=== PATIENT | female | born 1975 | race African-American/Black ===

== ENCOUNTER 2018-06-01 18:52 | Emergency (ER) | payer OTHER ==
[~2018-06-01] VITALS: Ht 167.6 cm; Wt 76.7 kg
[~2018-06-01 18:52] MED LIST: CRUTCH1 EACH; NORCO 5-325 TA1 EACH PO
[2018-06-01] MEDS ORDERED: DAY TIME SOFTG1 EACH PO (19:53)
[2018-06-01] MEDS ORDERED: SUDAFED 12 HOU120 MG PO (19:53)
[2018-06-01] MEDS ORDERED: PROVENTIL HFA6.7 GM INH (20:19)
[2018-06-01] MEDS ORDERED: MEDROL4 M1 PO (20:19)
== END 2018-06-01 20:34 | disposition home or self-care (01) ==
LOC: ED 18:52
DX: J20.9 Acute bronchitis, unspecified (principal); G43.909 Migraine, unspecified, not intractable, without status migrainosus; F17.200 Nicotine dependence, unspecified, uncomplicated
CPT/HCPCS: 99283

== ENCOUNTER 2018-07-27 02:27 | Emergency (ER) | payer OTHER ==
[~2018-07-27] VITALS: Ht 167.6 cm; Wt 77.7 kg
[~2018-07-27 02:27] MED LIST changes: +DAY TIME SOFTG1 EACH PO; +MEDROL4 M1 PO; +PROVENTIL HFA6.7 GM INH; +SUDAFED 12 HOU120 MG PO
[2018-07-27] MEDS ORDERED: IBUPROFEN600 MG PO (02:58)
== END 2018-07-27 03:04 | disposition home or self-care (01) ==
LOC: ED 02:27
DX: S60.221A Contusion of right hand, initial encounter (principal); W22.8XXA Striking against or struck by other objects, initial encounter; G43.909 Migraine, unspecified, not intractable, without status migrainosus; F17.200 Nicotine dependence, unspecified, uncomplicated
CPT/HCPCS: 73130; 99283